=== PATIENT | female | born 1965 | race Caucasian/White ===

== ENCOUNTER 2024-08-21 17:19 | Emergency (ER) | payer BC, SELFPAY ==
[2024-08-21 17:24] VITALS: BP 172/110
[2024-08-21 18:32] VITALS: BP 109/94
--- NOTE | 2024-08-21 22:13 | ED.GENMED ---
History of Present Illness
General
Chief Complaint: Skin Surface Trauma
Source: patient
Time Seen by Provider: 08/21/24 22:03
History of Present Illness
History of Present Illness:
58-year-old female presents to the emergency room for injury to her right index finger. Patient is right-hand dominant. She was carrying a pile of wood and further wood-burning fireplace when somehow she injured her finger. Patient noted that the
tip of the finger seems to be almost cut off. No other injuries. Last tetanus shot was less than 10 years ago.
Past History
Past History
ED Past Medical History: HTN
ED Past Surgical History: Gynecological (Tubal ligation) and Orthopedic (Knee)
Social History
Tobacco: Non-smoker
Alcohol: Occasional
Personal:
Living: with family
Employment: Employed
Family History
Family History: Other (Noncontributory)
Phy Exam
Physical Exam
Physical Exam:
General: Awake, Alert, Oriented X3. No acute distress.
Vitals: unremarkable
Head: Atraumatic
Eyes: Pupils equal, EOMI
Neuro: Nonfocal
Skin: Warm, dry, no rash
Extremities: pulses equal b/l, no edema partial amputation distal right index finger. Laceration is of the distal third of the fingertip through the nail with the palmar surface of the finger intact.
Course
Orders/Labs/Results
Orders:
Orders
08/21/24 22:12
Thumb/Finger 2 View Rt [CR Finger(s)/thumb Min 2 Vw Rt] Urgent
Comment:
Reason For Exam: partial tip amputation
Indicate Which Finger:: Index Finger
08/21/24 22:37
Cephalexin Monohydrate [Keflex] 500 mg PO NOW STA
Vital Signs
Initial and Last Documented VS:
Initial Vital Signs
Temp Pulse Resp BP Pulse Ox
98.1 F 97 20 172/110 99
08/21/24 17:24 08/21/24 17:24 08/21/24 17:24 08/21/24 17:24 08/21/24 17:24
Last Documented Vital Signs
Temp Pulse Resp BP Pulse Ox
98.1 F 89 18 109/94 100
08/21/24 17:24 08/21/24 18:32 08/21/24 18:32 08/21/24 18:32 08/21/24 18:32
Procedures
Laceration Closure
Right Distal Second Finger:
Status of Wound: clean
Description of Wound Edges: ragged
Preparation: cleaned with saline
Anesthesia: 1% Lidocaine and Digital-Regional
Revision/Debridement: minor revision
Wound exploration: explored to base- no FB
Type of Closure: single layer closure
Skin Closure Material: 3-0 nylon (3) and 5-0 nylon (2)
Number of sutures: 5
Additional information:
Of note laceration to the middle finger not the index finger.
MDM/Problems Addressed
Differential Diagnosis Includes:
fx, laceration, retained f.b.
MDM/Problems Addressed:
Patient presents with laceration to the distal portion of her right index finger. Fingertip closed with a combination of 3-0 nylon and 5-0 nylon. Wound came together adequately. Sutured through the nail. Patient prescribed Keflex as the distal
phalanx was fractured as well. Instructed patient to follow-up with hand surgery, Dr. Berman.
*Radiology
Radiology exam reviewed: preliminary read by ED provider (Tissue laceration and distal phalanx fracture)
*Pulse Oximetry
Patient hypoxic: no
*Critical Care Note
Total Time (30-74mins, 75-104mins- exclusive of procedures): Not Applicable
ED Attending Note
-
Portions of this chart may have been created with voice recognition software.� Occasional wrong word or��sound alike� substitutions may have occurred due to the inherent limitations of voice recognition software.
Discharge Plan
Departure
Patient Disposition: Home (Routine Discharge)
Date of Disposition: 08/22/24
Time of Disposition: 00:15
Patient with high blood pressure during this ER visit?: No
Condition: Good
Discharge Problem:
Partial traumatic amputation of right index finger through phalanx
Instructions: Amputation of the Finger or Fingertip (DC)
Prescriptions:
New
cephalexin 500 mg capsule
500 mg PO BID Qty: 10 0RF
No Action
lisinopril 20 MG tablet
20 mg PO DAILY
dicyclomine 20 MG tablet
20 mg PO QIDPRN PRN (Reason: abdominal pain) Qty: 20 0RF
Referrals:
Trevor Berman MD [Active] -
Annabella Suarez PA-C [Family Provider] -
Activity Restrictions/Additional Instructions:
Please call Dr. Berman's office in the morning to make an appointment.
Interventions
Interventions:
*Risk Screen - Suicide Last Done: 08/21/24 17:24
*General Assessment Last Done: 08/21/24 17:24
*Neglect/Abuse Screening Last Done: 08/21/24 17:24
ED- Fall Risk Assessment Last Done: 08/21/24 18:33
*ED COVID-19 Vaccine History Last Done: 08/21/24 18:32
ED-Skin Assessment Last Done: 08/21/24 18:33
Discharge Date and Time
Discharge Date/Time: 08/22/24 00:40
Print Language: DANISH
[2024-08-21] MEDS: KEFLEX 500 MG PO (22:47)
== END 2024-08-22 00:40 | disposition home or self-care (01) ==
LOC: EMR 17:19
PROVIDERS: EMERGENCY PHYSICIAN Emergency Medicine; FAMILY PHYSICIAN Physician Assistant Medical
DX: S68.120A Partial traumatic metacarpophalangeal amputation of right index finger, initial encounter (principal); X58.XXXA Exposure to other specified factors, initial encounter; I10 Essential (primary) hypertension
CPT/HCPCS: 99283; 12001; 73140

== ENCOUNTER → 2024-11-25 08:41 | Outpatient (REF) | payer BC, SELFPAY | LOC: HWWDC 08:41 | PROVIDERS: ATTENDING PHYSICIAN Physician Assistant Medical | DX: Z12.31 Encounter for screening mammogram for malignant neoplasm of breast (principal) | CPT/HCPCS: 77063; 77067 ==

== ENCOUNTER → 2025-02-23 10:16 | Outpatient (REF) | payer BC, SELFPAY | LOC: RAD 10:16 | PROVIDERS: ATTENDING PHYSICIAN Physician Assistant Medical | DX: N95.0 Postmenopausal bleeding (principal) | CPT/HCPCS: 76830; 76856 ==

== ENCOUNTER 2025-06-30 11:18 | Emergency (ER) | payer SELFPAY ==
[2025-06-30 11:24] VITALS: BP 185/106
[2025-06-30 12:02] VITALS: BMI 23.3
[2025-06-30 12:03] VITALS: BP 186/100
[2025-06-30 12:28] VITALS: BP 181/90
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
[2025-06-30] MEDS: TYLENOL 1000 MG PO (12:33)
[2025-06-30 13:23] VITALS: BP 149/100
== END 2025-06-30 14:03 | disposition home or self-care (01) ==
LOC: EMR 11:18
PROVIDERS: EMERGENCY PHYSICIAN Emergency Medicine; FAMILY PHYSICIAN Physician Assistant Medical
DX: R51.9 Headache, unspecified (principal); I10 Essential (primary) hypertension; V43.52XA Car driver injured in collision with other type car in traffic accident, initial encounter; Y92.410 Unspecified street and highway as the place of occurrence of the external cause
CPT/HCPCS: 99284; 70450; 72125